=== PATIENT | female | born 1930 | race Caucasian/White ===

== ENCOUNTER 2017-04-06 07:56 | Inpatient (IN) ==
[~2017-04-06 07:56] MED LIST: ACETAMINOPHEN 500 MG TABLET PO ONE; DEXAMETHASONE 4 MG/ML INJECTION IVP ONE; FAMOTIDINE PB 20 MG/50 ML BAG IV ONE; LIDOCAINE 1% (10mg/ml) 2mL INJ PF SDV ID ONE; MELOXICAM 15 MG TABLET PO ONE; METOCLOPRAMIDE 10mg/2ml INJECTION IVP ONE; ONDANSETRON 4 MG/2 ML INJECTION IVP ONE; TRANEXAMIC ACID 1,000 MG in NS 100 ML IV ONE
[2017-04-06] MEDS ORDERED: EPINEPHrine PF 0.25 MG, BUPIVACAINE 0.25% PF 30 ML, MORPHINE SULFATE 15 MG, KETOROLAC I... OPSITE ONE (08:00)
[2017-04-06] MEDS ORDERED: CEFAZOLIN 1 G INJECTION IVP ONE (08:21)
[2017-04-06 08:22] VITALS: BMI 20.2
--- NOTE | 2017-04-06 09:57 | Anesthesia Preoperative Report ---
Anesthesia Preoperative Record - Date and Time Date: 04/06/17 Preoperative Diagnosis: RT TKA M17.11 Proposed Procedure: Right TKR NPO Since Date: 04/06/17 NPO Since Time: 00:00 Allergies/Adverse Reactions: Allergies Allergy/AdvReac Type Severity Reaction Status Date / Time shrimp Allergy Unknown Verified 04/06/17 08:33 - Vital Signs Vital Signs: Temperature 97.9 F 04/06/17 08:21 Pulse Rate 68 04/06/17 08:48 Respiratory Rate 16 04/06/17 08:21 Blood Pressure 136/78 04/06/17 08:21 Pulse Oximetry 99 04/06/17 08:21 Height and Weight: Height 5 ft 7 in Weight 58.5 kg Body Mass Index 20.2 - Medications Inpatient Medications: Current Medications Lactated Ringer's (Lactated Ringers) 1,000 mls @ 50 mls/hr IV .Q20H ROD Last Admin: 04/06/17 08:56 Dose: 50 mls/hr Isopropyl Alcohol (Nozin Nasal Swab) 1 each DEISY PREOP ONE Stop: 04/06/17 11:57 Last Admin: 04/06/17 08:58 Dose: 3 each Sodium Chloride (Iv Flush) 10 - 80 ml IV PRN PRN PRN Reason: [place] Home Medications: Home Medications Medication Instructions Recorded Confirmed Type Neurontin (gabapentin) 600 mg 2 tab PO HS 12/15/16 04/06/17 History tablet biotin 10,000 mcg disintegrating 10,000 mcg PO Q24H 12/15/16 04/06/17 History tablet calcium carbonate 600 mg(1,500 1 tab PO QAM 12/15/16 04/06/17 History mg)-vitamin D3 800 unit chewable tablet cyanocobalamin (vit B-12) 500 mcg 1,000 mcg PO DAILY 12/15/16 04/06/17 History tablet Glucosa Mata 2Kcl/Chondroitin Mata 1 each PO DAILY 04/02/17 04/06/17 History [Glucosamine Chondroitin Caplet] Krill Oil/[place]-3/Dha/Epa [[place]-3 1 each PO DAILY 04/02/17 04/06/17 History Krill Oil Softgel] Is Patient on Beta Des?: No - Medical History Respiratory: DENIES: Asthma, Bronchitis, Chronic Obstructive Pulmonary Disease (COPD), Dyspnea, Orthopnea, Pulmonary Embolism, Pneumonia, Upper Respiratory Infection, Pulmonary Edema, Sleep Apnea, Tuberculosis, Other Cardiovascular: DENIES: Abnormal EKG, Angina, Arrhythmia, Congestive Heart Failure, Coronary Artery Disease, Heart Murmur, Hypertension, Hypotension, High Cholesterol, Myocardial Infarction, Rheumatic Fever, Valvular Heart Disease, Other Gastrointestional: Reports: Gastroesophageal Reflux Disease (MILD- no nocturnal symptoms) Neuro/Musculoskeletal: Reports: 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), Back Problems (lower back problems with left leg symptoms), Other (osteoporosis) Renal/Endocrine: DENIES: Diabetes Mellitus Type 1, Diabetes Mellitus Type 2, Renal Failure, Dialysis, Thyroid Disease, Weight Loss, Weight Gain, Other Other History: DENIES: Anesthesia Reactions, Now, Blood Transfusions, Chemotherapy , Cancer, Hemophilia, Malignant Hyperthermia, Sickle Cell Disease, Other - Surgical History HEENT Surgeries: Reports: Other (BILAT CATARACTS REMOVED) GI Surgery/Treatments: Reports: Cholecystectomy Musculoskeletal Surgery/Tx: Reports: Total Hip Replacement (right), Other ( right femur fracture with hardware) Reproductive Surgery/Treatment: Reports: Hysterectomy Anesthesia Reactions: None Hx Family Anesthesia Reaction: No History of Motion Sickness: No - Social History Smoking Status: Never smoker Substance Use Type: does not use Alcohol Intake Frequency: does not drink - Pertinent Findings EKG: Sinus Rhythm - Physical Exam Respiratory Exam: Present: lungs clear, bilateral breath sounds equal Cardiovascular Exam: Present: regular rate and rhythm, no murmur - Airway Assessment Mallampati Score: II TMD: 3 Fingerbreadths Neck Extension: fair Teeth: patial upper dentures (removed) Overall Assessment: may be difficult intubation (small mouth opening) - ASA ASA Score: 2 - Plan Anesthesia: General TIVA, General Inhalation Gases, Regional Block (postop) - Discussion Discussion: Discussed risks/options/alternatives of anesthesia and questions answered. Patient consents. Nursing pain assessment noted. Present for Discussion: children Attestation Statement: Prior to the delivery of any anesthetic medication, I examined the patient, developed the plan, obtained the patient's consent and discussed the risk and benefits of the procedure with the patient/guardian. - Additional Information Seen by Anesthesia: Yes
[2017-04-06] MEDS ORDERED: VANCOMYCIN 1,000 MG INJECTION ONE (10:00)
[2017-04-06] MEDS ORDERED: MIDAZOLAM 2mg/2ml INJECTION ONE (10:13)
[2017-04-06] MEDS ORDERED: ANESTHESIA MIXTURE 50 ML IV ONE (10:15)
[2017-04-06] MEDS ORDERED: VANCOMYCIN 1,000 MG INJECTION IAR ONE (11:11)
[2017-04-06] MEDS ORDERED: ROPIVACAINE 0.5% (5mg/ml) 30ml INJ ONE (11:25)
[2017-04-06] MEDS ORDERED: PROPOFOL 20 ML ONE (11:26)
--- NOTE | 2017-04-06 11:53 | Operative Note ---
- Procedure Preoperative Diagnosis: Right knee primary degenerative joint disease Postoperative Diagnosis: Same as preoperative diagnosis. Surgeon: Darion Duffy MD Autocad Detailer: Claus Graham Complications: None. Anesthesia: GETA Estimated Blood Loss: See Anesthesia Record. Fluids: Please see Anesthesia Record. Description of Procedure: Mrs. Olivera and her right knee were identified and marked in the preoperative holding area. She was brought back to the operating suite. Spinal anesthetic was administered and she was placed supine on the operating table. The right lower extremity was prepped and draped in my normal sterile fashion. Timeout was performed. The BackType robotic arm was used during the surgery. She had a partially correctable valgus deformity with just a slight flexion contracture. A standard anterior midline incision followed by medial parapatellar arthrotomy was performed. Anterior fat pad and meniscus were removed. The patella was everted and a patellar osteotomy was performed leaving 13 mm of bone. Tibial and femoral arrays and checkpoints were placed both within the original incision. The bone was then registered with the BackType robot. Osteophytes were removed and gaps were captured both 90 and 0 with correction. She had a 10-12 valgus deformity with flexion which corrected out to neutral in extension. Her bone quality was poor. The BackType robotic software is used to obtain 17 mm gaps in both flexion and extension medially and laterally. The BackType robotic arm was then used to assist with the bone cuts. Posterior osteophytes and remaining meniscus were removed. Trial components were placed. We used a 5 femur and a 4 tibia with a 9 mm spacer and a 29 patella. She tracked well and was well balanced throughout range of motion. The leg was exsanguinated and the tourniquet inflated to 250 mmHg. The tibia was stamped. The bone was prepared for cementing and components were cemented into place and allowed to cure in extension. The tourniquet was let down and hemostasis obtained with electrocautery. The knee was ranged one more time to ensure good stability, balance and patellar tracking. 1 g of vancomycin powder was then placed into the knee joint. The capsulotomy was then closed with #1 Vicryl. I then left my occupational therapist assistants to close the subcutaneous tissue with 2-0 Vicryl. Running 4-0 Monocryl will be used in the subcuticular layer. Dermabond will be used on the skin followed by sterile dressing. After drapes are removed patient will be taken to recovery room under the care of anesthesia.
[2017-04-06] MEDS ORDERED: SALINE FLUSH 10ml SYRINGE IV PRN (11:56)
[2017-04-06] MEDS ORDERED: NOZIN NASAL SWAB NAS ONE ×2 (11:56→12:59)
[2017-04-06] MEDS ORDERED: NAPROXEN 220 MG TABLET PO PRN (12:59)
[2017-04-06] MEDS ORDERED: DiphenhydrAMINE 25 MG CAPSULE PO PRN (12:59)
[2017-04-06] MEDS ORDERED: LORazepam 1 MG TABLET PO PRN (12:59)
[2017-04-06] MEDS ORDERED: ONDANSETRON 4 MG/2 ML INJECTION IVP PRN (12:59)
[2017-04-06] MEDS ORDERED: DiphenhydrAMINE 50 MG/ML INJECTION IVP PRN (12:59)
--- NOTE | 2017-04-06 13:09 | XRay Report ---
Indication: Post op TKA PROCEDURE: XR knee RT 2V: Encounter: Initial Comparison: December 14, 2016 Findings: Postoperative changes of right total knee replacement are seen. There is expected postoperative subcutaneous gas. No evidence of hardware failure or acute fracture. No retained radiopaque surgical instruments or sponges. Overlying material causing artifact. Impression: New right total knee prosthesis without evidence of immediate complication. .
[2017-04-06] MEDS: NS 1,000 ML IV SCH (13:11)
[2017-04-06] MEDS: ACETAMINOPHEN 325 MG TABLET PO SCH ×3 (13:11→21:59)
--- NOTE | 2017-04-06 13:34 | Anesthesia Procedure Note ---
Peripheral Nerve Blockade - Procedure Physician: Tom Duffy MD Date: 04/06/17 Surgical Procedure: Right TKR Discussion: Discussed risks/options/alternatives of anesthesia and questions answered. Patient consents. Nursing pain assessment noted. Block Start: 12:17 Block Stop: 12:19 Blocked Employed: Adductor Canal Indication: Post-Operative Pain Approach: Right Side Confirmed Position: Supine Patient: Consent, Risks/Benefits Discussed, Informed, Post Block Act. Discussed IV Sedation: No Initial Vital Signs: Temperature 97.9 F 04/06/17 08:21 Temperature Source Oral 04/06/17 08:21 Pulse Rate 78 04/06/17 08:21 Respiratory Rate 16 04/06/17 08:21 Blood Pressure 136/78 04/06/17 08:21 Blood Pressure Mean 97 04/06/17 08:21 Pulse Oximetry 99 04/06/17 08:21 Oxygen Delivery Method 04/06/17 08:21 Post Vital Signs: Temperature 97.8 F 04/06/17 12:49 Pulse Rate 64 04/06/17 12:45 Respiratory Rate 22 04/06/17 12:45 Blood Pressure 141/67 H 04/06/17 12:45 Pulse Oximetry 100 04/06/17 12:45 Prep: Duraprep Ultrasound Used?: Yes - Injectate Ropivacaine (%): 0.5 Ropivacaine (mL): 20 Was Epi 1:200,000 Used?: No Injection: Injection made incrementally with constant monitoring and aspiration every ml
--- NOTE | 2017-04-06 13:35 | Anesthesia Postoperative Note ---
- Date and Time Date: 04/06/17 Time: 13:34 - Status Patient Participated in Evaluation: Patient Participated in Person Vital Signs: Temperature 97.8 F 04/06/17 12:49 Pulse Rate 64 04/06/17 12:45 Respiratory Rate 22 04/06/17 12:45 Blood Pressure 141/67 H 04/06/17 12:45 Pulse Oximetry 100 04/06/17 12:45 Respiratory Function: Airway Patent Cardiovascular Function: Regular Pulse EKG: Sinus Rhythm Mental Status: Alert and Oriented Pain Intensity: 0 Hydration: Taking PO Fluids Complications During Recover: None Apparent - Follow-Up Instructions Instructions: Per Surgeon
[2017-04-06] MEDS: TRAMADOL 50 MG TABLET PO PRN (14:23)
[2017-04-06] MEDS: NOZIN NASAL SWAB NAS SCH ×2 (14:26→22:00)
[2017-04-06] MEDS ORDERED: LR 1,000 ML IV SCH (15:15)
[2017-04-06] MEDS: CEFAZOLIN 1 G in NS 100 ML IV SCH (17:58)
[2017-04-06] MEDS: DEXAMETHASONE 20 MG/5 ML INJECTION IVP SCH (17:59)
[2017-04-06] MEDS ORDERED: SENNOSIDES 8.6 MG TABLET PO SCH (21:00)
[2017-04-06] MEDS ORDERED: GABAPENTIN 600 MG TABLET PO SCH (21:00)
[2017-04-06] MEDS: DOCUSATE SODIUM 100 MG CAPSULE PO SCH (21:59)
[2017-04-06] MEDS: ASPIRIN *EC* 81 MG TABLET PO SCH (21:59)
[2017-04-07] MEDS: NS 1,000 ML IV SCH (01:57)
[2017-04-07] MEDS: DEXAMETHASONE 20 MG/5 ML INJECTION IVP SCH (01:59)
[2017-04-07] MEDS: CEFAZOLIN 1 G in NS 100 ML IV SCH (02:00)
[2017-04-07] MEDS: NOZIN NASAL SWAB NAS SCH (06:18)
[2017-04-07 07:29] VITALS: RESP 18
--- NOTE | 2017-04-07 08:11 | Orthopedic Progress Note ---
Date: Date: 04/07/17 Time: 806 Subjective/Severity of Illness: Kelly is doing very well. She wants to go home today. Complains that her room was too hot at 72 degrees and likes to sleep with the room in the lower 60's. Denies CP, cough, SOA or other complaints. She has been ambulatory into the hallway with good tolerance. Labs and VS are stable. Anticipate discharge later today if she does well with PT. Orthopedic Objective PO Vital signs: Temperature 97.4 F 04/07/17 07:28 Pulse Rate 73 04/07/17 07:28 Respiratory Rate 18 04/07/17 07:28 Blood Pressure 121/65 04/07/17 07:28 Pulse Oximetry 95 04/07/17 07:28 Height and Weight: Height 5 ft 7 in Weight 128 lb 15.527 oz Body Mass Index 20.2 - Constitutional General Appearance: Present: alert, cooperative, no acute distress - Respiratory Exam Present: non-labored - Cardiovascular Exam Present: pedal pulses intact - Extremities Exam Extremities: Present: pulses intact. Absent: calf tenderness - Surgical Site Incision: Mepilex dressing intact, no drainage - Integumentary Exam Present: pink, warm, dry - Neurological Exam Present: no deficits - Psychiatric Exam Present: alert, normal affect - Labs Result Diagrams: 04/07/17 04:02 04/07/17 04:02 Abnormal lab results 04/07/17 04/07/17 Range/Units 04:02 04:02 Hgb 11.6 L (12-16) GM/DL Hct 35.5 L (36-46) % Chloride 108 H (98-107) MEQ/L BUN 21.0 H (7-17) MG/DL Creatinine 0.5 L (0.7-1.2) MG/DL BUN/Creatinine Ratio 42 H (6-26) RATIO Glucose 120 H (65-110) MG/DL Calcium 8.0 L (8.4-10.2) MG/DL H & H 04/07/17 Range/Units 04:02 Hgb 11.6 L (12-16) GM/DL Hct 35.5 L (36-46) % Orthopedic Assessment and Plan (1) Primary osteoarthritis of right knee Status: Acute Assessment and Plan: Kelly is doing very well. Expect discharge later today with f/u in 3 weeks. Current anti-coagulation protocol for VTE prophylaxis x 6 weeks. SCD's and ealry mobilization for added protection. Dressing dry. Labs and VS stable. PT/OT services to improve independent function. Out pt therapy has been set up. Discharge Planning per Case Management. - Anticoagulation Therapy Anticoagulation: ASA 81 mg PO BID x6 weeks Hospital Course Summary Disclaimer: The visit summary below is not to be considered part of the above Progress Note.
[2017-04-07] MEDS: ASPIRIN *EC* 81 MG TABLET PO SCH (08:32)
[2017-04-07] MEDS: ACETAMINOPHEN 325 MG TABLET PO SCH ×2 (08:32→12:48)
[2017-04-07] MEDS: DOCUSATE SODIUM 100 MG CAPSULE PO SCH (08:32)
[2017-04-07] MEDS ORDERED: POLYETHYL GLYCOL 3350 17gm PACKET PO SCH (09:00)
[2017-04-07] MEDS: TRAMADOL 50 MG TABLET PO PRN (09:39)
[2017-04-07] MEDS ORDERED: SENNOSIDES 8.6 MG TABLET PO PRN (11:58)
[2017-04-07 12:16] VITALS: BP 115/69; PULSE 72; O2SAT 98
[2017-04-07 12:18] VITALS: TEMP 97.7
[2017-04-08] MEDS ORDERED: BISACODYL 10 MG SUPPOSITORY RECTALLY SCH (20:00)
== END 2017-04-07 15:16 | disposition home or self-care (01) | DRG 470 ==
LOC: SUR 07:56 → NMC.PERIOP 07:59 → EDSTATUS 09:50 → SRG 12:49 → SUR 04-07 15:15
PROVIDERS: ADMIT Orthopaedic Surgery; ATTEND Orthopaedic Surgery